=== PATIENT | male | born 1965 | race Caucasian/White ===

== ENCOUNTER 2025-05-15 16:38 | Emergency (ER) | payer BC ==
[2025-05-15 19:30] LABS: #Basophils 0.08 10x3/uL (0.0-0.2); #Eosinophils 0.29 10x3/uL (0.0-0.5); #Monocytes 0.78 10x3/uL (0.0-1.1); #Neutrophils 5.16 10x3/uL (1.5-8.4); %Basophils 1.0 % (0.0-2.0); %Eosinophils 3.7 % (0.0-6.0); %Lymphocytes 19.6 % (18.0-47.0); %Monocytes 9.9 % (0.0-10.0); %Neutrophils 65.4 % (40.0-75.0); Hematocrit 47.1 % (38.8-50.0); Hemoglobin 16.2 g/dL (13.5-17.5); Mean Corpuscular Hemoglobin 30.2 pg (27.0-33.0); Mean Corpuscular Volume 87.9 fL (81.2-95.1); Platelet Count 220 10x3/uL (150-450); Red Blood Cell (RBC) Count 5.36 10x6/uL (4.32-5.72); White Blood Cell (WBC) Count 7.89 10x3/uL (3.5-10.5)
[2025-05-15 19:45] LABS: ALT (SGPT) 34 U/L (Less than 45); AST (SGOT) 31 U/L (11-34); Albumin 4.2 g/dL (3.1-4.5); Alkaline Phosphatase 71 U/L (40-110); Anion Gap 13 mmol/L (10-20); BUN (Urea Nitrogen) 17 mg/dL (8.4-25.7); Bilirubin, Total 0.4 mg/dL (0.3-1.2); Calc. Creatinine Clearance 0 mL/min (70-130); Calcium 9.9 mg/dL (7.8-10.44); Carbon Dioxide 24 mmol/L (23-31); Chloride 103 mmol/L (98-107); Globulin 3.9 g/dL (2.4-3.5); Glucose 108 mg/dL (80-115); Potassium 4.4 mmol/L (3.5-5.1); Sodium 136 mmol/L (136-145)
== END 2025-05-15 20:45 | disposition home or self-care (01) ==
LOC: CSHERS 16:38
DX: R60.0 Localized edema (principal); I10 Essential (primary) hypertension
CPT/HCPCS: 36415; 80053; 83880; 85025; 93970